=== PATIENT | female | born 1980 | race Caucasian/White ===

== ENCOUNTER 2016-12-25 19:37 | Emergency (ER) | payer SELFPAY ==
[~2016-12-25] VITALS: Ht 165.1 cm; Wt 80.7 kg
[2016-12-25 19:53] VITALS: BP 112/79
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
== END 2016-12-25 19:50 | disposition home or self-care (01) ==
LOC: ER 19:37
DX: Z04.8 Encounter for examination and observation for other specified reasons (principal); S50.11XA Contusion of right forearm, initial encounter; Z88.1 Allergy status to other antibiotic agents; Y93.89 Activity, other specified; Y92.89 Other specified places as the place of occurrence of the external cause; Y99.8 Other external cause status; X50.9XXA Other and unspecified overexertion or strenuous movements or postures, initial encounter
CPT/HCPCS: 99283

== ENCOUNTER 2018-04-30 23:13 | Emergency (ER) | payer OTHER ==
[~2018-04-30] VITALS: Ht 162.6 cm; Wt 95.3 kg
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
[2018-04-30] MEDS: diphenhydrAMINE 50 MG/ML VIAL IVP ONE (23:41)
[2018-04-30] MEDS: methylPREDNISolone SOD SUCC PF 125 MG/2 ML VIAL. IV ONE (23:42)
[2018-04-30] MEDS: FAMOTIDINE 20 MG/2 ML VIAL IVP ONE (23:42)
[2018-04-30] MEDS: EPINEPHrine SYRINGE 1 MG/10 ML SYRINGE IM ONE (23:49)
[2018-05-01] MEDS: EPINEPHrine SYRINGE 1 MG/10 ML SYRINGE IM ONE (02:28)
[2018-05-01] MEDS ORDERED: EPINEPHrine 1 MG/ML VIAL IM ONE (02:30)
[2018-05-01 02:51] VITALS: BP 132/75
== END 2018-05-01 03:05 | disposition short-term general hospital (02) ==
LOC: ER 23:13
DX: T78.3XXA Angioneurotic edema, initial encounter (principal); F43.10 Post-traumatic stress disorder, unspecified; Z88.1 Allergy status to other antibiotic agents; X58.XXXA Exposure to other specified factors, initial encounter; Y93.89 Activity, other specified; Y92.89 Other specified places as the place of occurrence of the external cause; Y99.8 Other external cause status
CPT/HCPCS: 96372; 96374; 96375; 99291; J0171; J1200; J2930; J3490